=== PATIENT | female | born 1975 | race Hispanic/Latino ===

== ENCOUNTER 2018-06-02 09:46 | Emergency (ER) | payer OTHER ==
[~2018-06-02] VITALS: Ht 154.9 cm; Wt 73.9 kg
[2018-06-02] MEDS ORDERED: IBUPROFEN 400 MG TAB PO ONE (10:45)
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
--- NOTE | 2018-06-02 12:43 | Diagnostic Imaging Report ---
EXAMINATION: PA and lateral views of the chest. COMPARISON: None CLINICAL HISTORY: Left chest and arm pain DISCUSSION: Lines/tubes: None. Lungs: The lungs are well inflated and clear. There is no evidence of pneumonia or pulmonary edema. Pleura: There is no pleural effusion or pneumothorax. Heart and mediastinum: Cardiomediastinal silhouette is unremarkable. Pulmonary vasculature is normal. Bones and soft tissues: No acute bony abnormalities. IMPRESSION: No acute cardiopulmonary abnormalities. Signed by: Dr. Iván Rosa M.D. on 06/02/2018 12:40 PM
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
== END 2018-06-02 16:00 | disposition home or self-care (01) ==
LOC: FSED 09:46
DX: M54.2 Cervicalgia (principal); S16.1XXA Strain of muscle, fascia and tendon at neck level, initial encounter; S20.212A Contusion of left front wall of thorax, initial encounter; V43.52XA Car driver injured in collision with other type car in traffic accident, initial encounter; Y92.488 Other paved roadways as the place of occurrence of the external cause
CPT/HCPCS: 71046; 72050; 72125; 99284